=== PATIENT | female | born 1945 | race Caucasian/White ===

== ENCOUNTER 2021-05-13 16:33 | Emergency (ER) | payer MEDICARE ==
[~2021-05-13] VITALS: Ht 157.5 cm; Wt 78.9 kg
[2021-05-13 16:42] VITALS: BP 133/70
--- NOTE | 2021-05-13 16:47 | NUR ---
SEEN AND EXAMINED BY .
[2021-05-13] MEDS ORDERED: HYDROCODONE/APAP 5/325MG TABLET PO ONE (17:00)
--- NOTE | 2021-05-13 17:00 | NUR ---
BACON SKIN LIFTER AT BEDSIDE FOR XRAY.
[2021-05-13] MEDS ORDERED: HYDROCODONE/APAP 5/325MG TABLET ONE (17:02)
[2021-05-13] MEDS ORDERED: IBUP-1957 PO (18:36)
[2021-05-13] MEDS ORDERED: HYDR-3972 PO (18:40)
--- NOTE | 2021-05-13 18:41 | NUR ---
Patient discharged to home in stable condition. Written and verbal after care instructions given. Patient verbalizes understanding of instruction.
== END 2021-05-13 18:42 | disposition home or self-care (01) ==
LOC: ER 16:34
DX: M25.562 Pain in left knee (principal); I10 Essential (primary) hypertension; Z88.0 Allergy status to penicillin
CPT/HCPCS: 73564-TC

== ENCOUNTER 2022-06-28 23:08 | Emergency (ER) | payer MEDICARE, OTHER ==
[~2022-06-28] VITALS: Ht 152.4 cm; Wt 75.7 kg
[~2022-06-28 23:08] MED LIST: HYDR-3972 PO
[2022-06-28 23:16] VITALS: BP 136/82
--- NOTE | 2022-06-29 00:23 | NUR ---
EMT AT PT'S BEDSIDE FOR EAR IRRIGATION
--- NOTE | 2022-06-29 00:35 | NUR ---
Patient discharged to home in stable condition. Written and verbal after care instructions given. Patient verbalizes understanding of instruction.
== END 2022-06-29 00:37 | disposition home or self-care (01) ==
LOC: ER 23:11
DX: H61.23 Impacted cerumen, bilateral (principal); H92.03 Otalgia, bilateral; I10 Essential (primary) hypertension; Z79.899 Other long term (current) drug therapy; Z88.0 Allergy status to penicillin